=== PATIENT | female | born 1985 | race Caucasian/White ===

== ENCOUNTER 2016-02-27 14:27 | Emergency (ER) ==
[2016-02-27 14:32] VITALS: BP 126/89; TEMP 97.4; BMI 32.1
--- NOTE | 2016-02-27 14:37 | ED.PDOC ---
General ED Provider: Dr. PARRIS RODRIGUEZ-ER Chief Complaint: Sore Throat Stated Complaint: my throat hurtrs Time Seen by Physician: 14:34 Mode of Arrival: Walk-In Information Source: Patient Exam Limitations: No limitations Primary Care Provider: PARRIS RODRIGUEZ Nursing and Triage Documentation Reviewed and Agree: Yes EENT Complaint Exam - Throat Complaint/Exam Onset/Duration: 2 days Symptoms Are: Still present Timimg: Constant Initial Severity: Mild Current Severity: Mild Aggravating: Reports: Eating Alleviating: Reports: None Associated Signs and Symptoms: Denies: Fever, Dysphagia, Drooling, Foreign body sensation, Chills, Cough, Wheezing, Hoarseness, Sinus discomfort, Nasal congestion, Difficulty breathing, Lethargy, Irritability, Decreased activity, Vomiting, Diarrhea, Decreased hearing, Ear drainage Related History: Reports: Similar Episode Uvula Midline: Yes Oriana-tonsillar Fluctuence: No Scarlatinaform Rash Present: No Exanthem: Present: Pharynx Stridor Present: No Sinus Tenderness Present: No Tonsillar Hypertrophy Present: Yes Tonsillar Exudate Present: Yes Oriana-tonsillar Swelling Present: No Adenopathy Present: Yes Splenomegaly Present: No Differential Diagnoses: Tonsillitis Review of Systems - Review Of Systems Constitutional: Reports: No symptoms Eyes: Reports: No symptoms Ears, Nose, Mouth, Throat: Reports: Throat pain, Throat swelling Respiratory: Reports: No symptoms Cardiac: Reports: No symptoms GI: Reports: No symptoms : Reports: No symptoms Musculoskeletal: Reports: No symptoms Skin: Reports: No symptoms Neurological: Reports: No symptoms Endocrine: Reports: No symptoms Hematologic/Lymphatic: Reports: No symptoms All Other Systems: Reviewed and Negative Past Medical History - Past Medical History Previously Healthy: Yes Endocrine: Reports: None Cardiovascular: Reports: None Respiratory: Reports: None Hematological: Reports: None Gastrointestinal: Reports: None Genitourinary: Reports: None Neuro/Psych: Reports: None Musculoskeletal: Reports: None Cancer: Reports: None Last Menstrual Period: N/A - Surgical History General Surgical History: Reports: Tubal ligation, Other (ear tubes) - Family History Family History: Reports: Unknown - Social History Smoking Status: Former smoker Hx Substance Use: No Alcohol Screening: Occasionally Lives: With family - Immunizations Tetanus Shot up to Date: Yes Physical Exam - Physical Exam Appearance: Well-appearing, No pain distress, Well-nourished Eyes: SUDHA ENT: Erythema, Exudate Neck: Supple Respiratory: Airway patent, Breath sounds clear, Breath sounds equal, Respirations nonlabored Cardiovascular: RRR, Pulses normal, No rub, No murmur GI/: Soft, Nontender, No masses, Bowel sounds normal, No Organomegaly Musculoskeletal: Normal strength, ROM intact, No edema, No calf tenderness Skin: Warm, Dry, Normal color Neurological: Sensation intact, Motor intact, Reflexes intact, Cranial nerves intact, Alert, Oriented Psychiatric: Affect appropriate Critical Care Note - Critical Care Note Total Time (mins): 0 Course - Course Vital Signs: Temp Pulse Resp BP Pulse Ox 02/27/16 14:27 97.4 F L 104 H 20 126/89 98 Departure - Departure Time of Disposition: 14:35 Disposition: HOME SELF-CARE Discharge Problem: Tonsillitis Instructions: Tonsillitis (ED) Condition: Good Pt referred to PMD for follow-up: Yes Additional Instructions: augmentin 875mg bid x 7days--medrol dose pack--salt water gargles--recheck in 48hrs if not improving Allergies/Adverse Reactions: Allergies No Known Allergies Allergy (Verified 02/27/16 14:33) Home Medications: Ambulatory Orders Dicyclomine HCl [Bentyl] 10 mg PO 02/27/16 Disposition Discussed With: Patient
== END 2016-02-27 14:39 | disposition home or self-care (01) ==
LOC: ED 14:27
DX: J03.90 Acute tonsillitis, unspecified (principal)
CPT/HCPCS: 99282

== ENCOUNTER 2016-03-30 12:54 | Outpatient (CLI) ==
[2016-03-30 14:22] VITALS: BMI 30.9
== END 2016-03-30 12:55 | disposition home or self-care (01) ==
LOC: DIETCN 12:54
PROVIDERS: ATTEND Internal Medicine Gastroenterology
DX: K90.0 Celiac disease (principal)
CPT/HCPCS: 97802

== ENCOUNTER 2016-04-19 10:12 | Day surgery (SDC) ==
[2016-04-19 11:10] VITALS: TEMP 98.2
[2016-04-19 12:12] LABS: URINE PREGNANCY INTERNAL QC INTERNAL QC VALID
[2016-04-19] MEDS ORDERED: DECADRON 4 MG/ML SDV ONE (12:15)
[2016-04-19] MEDS ORDERED: ZEMURON ONE (12:15)
[2016-04-19] MEDS ORDERED: ZOFRAN 4 MG/2 ML ONE (12:15)
[2016-04-19] MEDS ORDERED: NEOSTIGMINE IVP ONE (12:15)
[2016-04-19] MEDS ORDERED: DIPRIVAN 20 ML VIAL IVP ONE (12:15)
[2016-04-19] MEDS ORDERED: VERSED ONE (12:15)
[2016-04-19] MEDS ORDERED: ROBINOL ONE (12:15)
[2016-04-19] MEDS ORDERED: SUFENTA IVP ONE (12:15)
[2016-04-19] MEDS ORDERED: LACTATED RINGERS 1,000 ML IV SCH (13:00)
[2016-04-19] MEDS ORDERED: ZOFRAN 4 MG/2 ML IVP ONE (13:34)
[2016-04-19 14:52] VITALS: BP 110/76
--- NOTE | 2016-04-20 14:14 | OP ---
PREOPERATIVE DIAGNOSIS: TONSILLITIS POSTOPERATIVE DIAGNOSIS: TONSILLITIS OPERATION: TONSILLECTOMY PROCEDURE: The patient was taken to surgery, placed on the table and general anesthesia was administered. A Kostas-Arnulof mouth gag was inserted. The right tonsil was grasped in the area of the superior pole and incision was made along the anterior tonsillar pillar. Dissection carried out inferiorly and tonsil was removed. [id number] suture of 0 chromic was placed at the base of the tongue. Another suture also placed in the middle part of the tongue. Identical procedure was performed of the left tonsil where again figure-of- eight suture of 0 chromic was placed in the middle of the tongue and at the base of the tongue. The patient's mouth and oropharynx were irrigated copiously with saline, extubated and the patient returned to the recovery room in satisfactory condition. JOANNE
--- NOTE | 2016-04-20 14:15 | DS ---
DISCHARGE DIAGNOSIS: TONSILLITIS SUMMARY: This is a 30-year-old patient who underwent a tonsillectomy on 04/19/16. The patient did well postoperatively and was instructed to return to the office in 3 weeks. Diet as tolerated. Activity as tolerated. The patient was released on Amoxicillin and Tylox with Codeine for pain. MTDD
== END 2016-04-19 15:55 | disposition home or self-care (01) ==
LOC: SURG 10:12
PROVIDERS: ATTEND Otolaryngology
DX: J35.01 Chronic tonsillitis (principal); D10.4 Benign neoplasm of tonsil
CPT/HCPCS: 81025

== ENCOUNTER 2016-08-11 22:16 | Emergency (ER) ==
[2016-08-11] MEDS ORDERED: ROCEPHIN IM STA (22:22)
[2016-08-11] MEDS ORDERED: LIDOCAINE 1 % AMP 5 ML (SUTURES) IM STA (22:22)
[2016-08-11] MEDS ORDERED: DECADRON 4 MG/ML SDV IM STA (22:22)
--- NOTE | 2016-08-11 22:25 | ED.PDOC ---
General ED Provider: Dr. PARRIS RODRIGUEZ-ER Chief Complaint: Bite Stated Complaint: dyan got this bite--its itchy Time Seen by Physician: 22:23 Mode of Arrival: Walk-In Information Source: Patient Exam Limitations: No limitations Primary Care Provider: PARRIS RODRIGUEZ Nursing and Triage Documentation Reviewed and Agree: Yes Skin Complaint Exam - Skin Rash/Itching Complaint/Exam Onset/Duration: 3 days Symptoms Are: Still present Initial Severity: Mild Current Severity: Mild Location: left upper arm Potential Exposures: Reports: Unknown Aggravating: Reports: None Alleviating: Reports: None Associated Signs and Symptoms: Denies: Difficulty breathing, Fever, Chills Skin Findings: Present: Urticaria, Target lesions Differential Diagnoses: Allergic Reaction, Other Review of Systems - Review Of Systems Constitutional: Reports: No symptoms Eyes: Reports: No symptoms Ears, Nose, Mouth, Throat: Reports: No symptoms Respiratory: Reports: No symptoms Cardiac: Reports: No symptoms GI: Reports: No symptoms : Reports: No symptoms Musculoskeletal: Reports: No symptoms Skin: Reports: Rash Neurological: Reports: No symptoms Endocrine: Reports: No symptoms Hematologic/Lymphatic: Reports: No symptoms All Other Systems: Reviewed and Negative Past Medical History - Past Medical History Previously Healthy: Yes Endocrine: Reports: None Cardiovascular: Reports: None Respiratory: Reports: None Hematological: Reports: None Gastrointestinal: Reports: None Genitourinary: Reports: None Neuro/Psych: Reports: None Musculoskeletal: Reports: None Cancer: Reports: None - Surgical History General Surgical History: Reports: Tubal ligation, Other (ear tubes) - Family History Family History: Reports: Unknown - Social History Smoking Status: Former smoker Hx Substance Use: No Alcohol Screening: Occasionally Lives: With family Physical Exam - Physical Exam Appearance: Well-appearing, No pain distress, Well-nourished Eyes: SUDHA, EOMI, Conjunctiva clear ENT: Ears normal, Nose normal, Oropharynx normal Neck: Supple Respiratory: Airway patent, Breath sounds clear, Breath sounds equal, Respirations nonlabored Cardiovascular: RRR, Pulses normal, No rub, No murmur GI/: Soft, Nontender, No masses, Bowel sounds normal, No Organomegaly Musculoskeletal: Normal strength, ROM intact, No edema, No calf tenderness Skin: Warm, Dry, Normal color Neurological: Sensation intact, Motor intact, Reflexes intact, Cranial nerves intact, Alert, Oriented Psychiatric: Affect appropriate, Mood appropriate Critical Care Note - Critical Care Note Total Time (mins): 0 Course - Course Orders, Labs, Meds: Orders Category Date Time Status Ceftriaxone Sodium [Rocephin] MEDS 08/11/16 22:22 Stat 1 gm IM ONCE STA Dexamethasone 4 mg/ml Inj [Decadron 4 mg/ml Sdv] MEDS 08/11/16 22:22 Stat 4 mg IM ONCE STA Lidocaine HCl/Pf [Lidocaine 1 % Amp 5 ml (Sutures)] MEDS 08/11/16 22:22 Stat 2.1 ml IM ONCE STA Medications Generic Name Dose Route Start Last Admin Trade Name Freq PRN Reason Stop Dose Admin Ceftriaxone Sodium 1 gm 08/11/16 22:22 Rocephin IM 08/11/16 22:23 ONCE STA Dexamethasone Sodium Phosphate 4 mg 08/11/16 22:22 Decadron 4 Mg/Ml Sdv IM 08/11/16 22:23 ONCE STA Lidocaine HCl 2.1 ml 08/11/16 22:22 Lidocaine 1 % Amp 5 Ml (Sutures) IM 08/11/16 22:23 ONCE STA Departure - Departure Time of Disposition: 22:25 Disposition: HOME SELF-CARE Discharge Problem: Insect bite Qualifiers: Encounter type: initial encounter Qualifier Code: (W57.XXXA) Bitten or stung by nonvenomous insect and other nonvenomous arthropods, initial encounter Instructions: Insect Bite or Sting (ED) Condition: Good Pt referred to PMD for follow-up: Yes Additional Instructions: use benadryl q 4hrs for itching --seee me next week if not resolving Allergies/Adverse Reactions: Allergies No Known Allergies Allergy (Verified 02/27/16 14:33) Home Medications: Ambulatory Orders Dicyclomine HCl [Bentyl] 10 mg PO DAILY 02/27/16 Cyclobenzaprine HCl 10 mg PO PRN 03/22/16 Ondansetron HCl [Zofran] 4 mg PO PRN 03/22/16 Disposition Discussed With: Patient
[2016-08-11 22:34] VITALS: BP 118/79; TEMP 97.9; BMI 31.1
== END 2016-08-11 23:05 | disposition home or self-care (01) ==
LOC: ED 22:16
DX: S40.862A Insect bite (nonvenomous) of left upper arm, initial encounter (principal); L29.9 Pruritus, unspecified; W57.XXXA Bitten or stung by nonvenomous insect and other nonvenomous arthropods, initial encounter
CPT/HCPCS: 96372; 99283

== ENCOUNTER 2016-09-10 19:21 | Emergency (ER) ==
[2016-09-10 19:32] VITALS: BP 120/75; TEMP 98.7; BMI 30.4
[2016-09-10] MEDS ORDERED: TORADOL IM STA (19:38)
--- NOTE | 2016-09-10 19:41 | ED.PDOC ---
General ED Provider: Dr. TORO BASURTO Chief Complaint: Wrist Pain/Injury Stated Complaint: Woke up yesterday with pain in the rt wrist, ni injury. she worked all day the pain got worse Time Seen by Physician: 19:39 Mode of Arrival: Walk-In Information Source: Patient Primary Care Provider: PARRIS RODRIGUEZ Nursing and Triage Documentation Reviewed and Agree: Yes Musculoskeletal Complaint Exam - Hand/Wrist Complaint/Exam Location of Pain: Reports: Right, Wrist Mechanism of Injury: Reports: No known trauma Symptoms Are: Still present Onset of Pain: Reports: Days Initial Severity: Moderate Current Severity: Mild Location: Reports: Discrete Character: Reports: Aching, Throbbing Alleviating: Reports: Rest Aggravating: Reports: Movement Associated Signs and Symptoms: Denies: Swelling, Redness, Bruising, Fever, Weakness, Numbness, Tingling Dominant Hand: Right Related Surgical History: Reports: None Hand/Wrist Findings: Absent: Swelling, Ecchymosis, Abnormal contour, Rotation Tenderness: Present: Radius, Snuff box Differential Diagnoses: Dislocation, Closed Fracture, Sprain Review of Systems - Review Of Systems Constitutional: Reports: No symptoms Eyes: Reports: No symptoms Ears, Nose, Mouth, Throat: Reports: No symptoms Respiratory: Reports: No symptoms Cardiac: Reports: No symptoms GI: Reports: No symptoms : Reports: No symptoms Musculoskeletal: Reports: Joint pain Skin: Reports: No symptoms Neurological: Reports: No symptoms Endocrine: Reports: No symptoms Hematologic/Lymphatic: Reports: No symptoms All Other Systems: Reviewed and Negative Past Medical History - Past Medical History Previously Healthy: Yes Endocrine: Reports: None Cardiovascular: Reports: None Respiratory: Reports: None Hematological: Reports: None Gastrointestinal: Reports: None Genitourinary: Reports: None Neuro/Psych: Reports: None Musculoskeletal: Reports: None Cancer: Reports: None Last Menstrual Period: AUGUST 03, 2016 PERIODS ARE IRREGULAR - Surgical History General Surgical History: Reports: Tubal ligation, Other (ear tubes) - Family History Family History: Reports: Unknown - Social History Smoking Status: Former smoker Hx Substance Use: No Alcohol Screening: Occasionally - Immunizations Tetanus Shot up to Date: Yes Physical Exam - Physical Exam Appearance: Well-appearing, No pain distress, Well-nourished Eyes: SUDHA, EOMI, Conjunctiva clear ENT: Ears normal, Nose normal, Oropharynx normal Respiratory: Airway patent, Breath sounds clear, Breath sounds equal, Respirations nonlabored Cardiovascular: RRR, Pulses normal, No rub, No murmur GI/: Soft, Nontender, No masses, Bowel sounds normal, No Organomegaly Musculoskeletal: Limited ROM, Limited strength Skin: Warm, Dry, Normal color Neurological: Sensation intact, Motor intact, Reflexes intact, Cranial nerves intact, Alert, Oriented Psychiatric: Affect appropriate, Mood appropriate Interpretation - Radiology Interpretation Radiology Interpretation By: ED Physician Radiology Results: Negative Critical Care Note - Critical Care Note Total Time (mins): 0 Course - Course Orders, Labs, Meds: Orders Category Date Time Status Ketorolac Tromethamine [Toradol] MEDS 09/10/16 19:38 Discontinued 60 mg IM ONCE STA WRIST, RIGHT 3 VIEWS Stat RADS 09/10/16 19:38 Completed Medications Discontinued Medications Generic Name Dose Route Start Last Admin Trade Name Freq PRN Reason Stop Dose Admin Ketorolac Tromethamine 60 mg 09/10/16 19:38 09/10/16 19:47 Toradol IM 09/10/16 19:39 60 mg ONCE STA Administration Vital Signs: Temp Pulse Resp BP Pulse Ox 09/10/16 19:22 98.7 F 71 16 120/75 98 Departure - Departure Time of Disposition: 20:12 Disposition: HOME SELF-CARE Discharge Problem: Tendinitis of right wrist Instructions: Tendinitis (ED) Condition: Stable Pt referred to PMD for follow-up: Yes Additional Instructions: Rest Prescriptions: Prednisone 10 mg PO BIDWM #14 tablet Allergies/Adverse Reactions: Allergies No Known Allergies Allergy (Verified 09/10/16 19:32) Home Medications: Ambulatory Orders Dicyclomine HCl [Bentyl] 10 mg PO TID PRN 02/27/16 Cyclobenzaprine HCl 10 mg PO DAILY PRN 03/22/16 Ondansetron HCl [Zofran] 4 mg PO DAILY PRN 03/22/16 Prednisone 10 mg PO BIDWM #14 tablet 09/10/16 Disposition Discussed With: Patient
--- NOTE | 2016-09-10 20:08 | DI ---
EXAM: Right wrist three views HISTORY: Pain COMPARISON: Right wrist exam 10/13/2013 FINDINGS: There is no acute fracture or dislocation or bony abnormality. The surrounding soft tiss ues are unremarkable. IMPRESSION: No acute findings
== END 2016-09-10 19:55 | disposition home or self-care (01) ==
LOC: ED 19:21
DX: M77.9 Enthesopathy, unspecified (principal)
CPT/HCPCS: 96372; 99283

== ENCOUNTER 2017-03-06 11:10 | Outpatient (CLI) ==
--- NOTE | 2017-03-06 11:41 | DI ---
EXAM: Three views of the right fingers. History: Right middle finger pain. Findings: No acute fracture or dislocation. No abnormal calcifications or radiopaque foreign bodies . Joint spaces are preserved. Impression: No acute osseous abnormality
== END 2017-03-06 11:11 | disposition home or self-care (01) ==
LOC: RAD 11:10
PROVIDERS: ATTEND Family Medicine
DX: M79.644 Pain in right finger(s) (principal)

== ENCOUNTER 2017-03-14 19:50 | Emergency (ER) ==
[2017-03-14 20:14] VITALS: BP 133/84; TEMP 97.8
[2017-03-14 20:17] VITALS: BMI 27.0
--- NOTE | 2017-03-14 20:26 | ED.PDOC ---
General ED Provider: Dr. PARRIS RODRIGUEZ-ER Chief Complaint: Urinary Problem Stated Complaint: i burn when i pee Time Seen by Physician: 20:15 Mode of Arrival: Walk-In Information Source: Patient Exam Limitations: No limitations Primary Care Provider: PARRIS RODRIGUEZ Nursing and Triage Documentation Reviewed and Agree: Yes Reviewed sepsis parameters & appropriate labs ordered?: Yes System Inflammatory Response Syndrome: Not Applicable Sepsis Protocol: For patient's 13 years and over: Temp is 96.8 and below OR 101 and greater Pulse >90 BPM Resp >20/minute Acutely Altered Mental Status Are patient's symptoms suggestive of a new infection, such as: -Pneumonia -Skin, Soft Tissue -Endocarditis -UTI -Bone, Joint Infection -Implantable Device -Acute Abdominal Infection -Wound Infection -Meningitis -Blood Stream Catheter Infection -Unknown Complaint Exam - UTI Female Complaint/Exam Patient Complains of: Reports: Painful urination Onset/Duration: 24 hrs Symptoms Are: Still present Timing: Constant Initial Severity: Mild Current Severity: Mild Location of Pain: Reports: Suprapubic Associated Signs and Symptoms: Denies: Fever, Chills, Flank pain, Dyspareunia, Vaginal discharge Patient Rh Status: Unknown CVA Tenderness: No Suprapubic Tenderness: No Differential Diagnoses: Cystitis Review of Systems - Review Of Systems Constitutional: Reports: No symptoms Eyes: Reports: No symptoms Ears, Nose, Mouth, Throat: Reports: No symptoms Respiratory: Reports: No symptoms Cardiac: Reports: No symptoms GI: Reports: No symptoms : Reports: Burning, Dysuria Musculoskeletal: Reports: No symptoms Skin: Reports: No symptoms Neurological: Reports: No symptoms Endocrine: Reports: No symptoms Hematologic/Lymphatic: Reports: No symptoms All Other Systems: Reviewed and Negative Past Medical History - Past Medical History Previously Healthy: Yes Endocrine: Reports: None Cardiovascular: Reports: None Respiratory: Reports: None Hematological: Reports: None Gastrointestinal: Reports: None Genitourinary: Reports: None Neuro/Psych: Reports: None Musculoskeletal: Reports: None Cancer: Reports: None Last Menstrual Period: 03/05/16 - Surgical History General Surgical History: Reports: Tubal ligation, Other (ear tubes) - Family History Family History: Reports: Unknown - Social History Smoking Status: Never smoker Hx Substance Use: No Alcohol Screening: None Lives: With family - Immunizations Tetanus Shot up to Date: Yes Physical Exam - Physical Exam Appearance: Well-appearing, No pain distress, Well-nourished Eyes: SUDHA ENT: Ears normal Neck: Supple Respiratory: Airway patent, Breath sounds clear, Breath sounds equal, Respirations nonlabored Cardiovascular: RRR, Pulses normal, No rub, No murmur GI/: Soft Musculoskeletal: Normal strength Skin: Warm, Dry, Normal color Neurological: Sensation intact Psychiatric: Affect appropriate, Mood appropriate Critical Care Note - Critical Care Note Total Time (mins): 0 Course - Course Orders, Labs, Meds: Lab Review 03/14/17 03/14/17 19:55 19:55 Urine Color Zarina Urine Clarity Cloudy Urine pH 6.5 Ur Specific [place] >=1.030 Urine Protein 3+ Urine Glucose (UA) Negative Urine Ketones Negative Urine Blood 3+ Urine Nitrite Negative Urine Bilirubin Negative Urine Urobilinogen 0.2 Ur Leukocyte Esterase 1+ Urine Microscopic RBC 30-50 Urine Microscopic WBC 20-30 Ur Squamous Epith Cells 2-5 Urine Bacteria 1+ Urine Test Negative Orders Category Date Time Status URINALYSIS C & S IF INDICATED Stat LAB 03/14/17 19:55 Completed URINE CULTURE Stat LAB 03/14/17 19:55 Received URINE Stat LAB 03/14/17 19:55 Completed Vital Signs: Temp Pulse Resp BP Pulse Ox 03/14/17 20:11 97.8 F 80 18 133/84 98 Departure - Departure Time of Disposition: 20:25 Disposition: HOME SELF-CARE Discharge Problem: Urinary tract infectious disease Instructions: Urinary Tract Infection in Women (ED) Condition: Good Pt referred to PMD for follow-up: Yes IPMP verified?: No Additional Instructions: cipro 500mg bid x 7 days--pyridium 200mg tid with food x 2 days #6--fluids-- recheck in 72hrs if not better Allergies/Adverse Reactions: Allergies No Known Allergies Allergy (Verified 09/10/16 19:32) Home Medications: Ambulatory Orders Dicyclomine HCl [Bentyl] 10 mg PO TID PRN 02/27/16 Cyclobenzaprine HCl 10 mg PO DAILY PRN 03/22/16 Ondansetron HCl [Zofran] 4 mg PO DAILY PRN 03/22/16 Disposition Discussed With: Patient
== END 2017-03-14 20:30 | disposition home or self-care (01) ==
LOC: ED 19:50
DX: N39.0 Urinary tract infection, site not specified (principal)
CPT/HCPCS: 81001; 81025; 87086; 87186; 99283

== ENCOUNTER 2017-03-26 11:27 | Outpatient (CLI) ==
--- NOTE | 2017-03-26 12:41 | US ---
EXAM: Pelvic ultrasound HISTORY: Left lower quadrant pain COMPARISON: None TECHNIQUE: Transvaginal pelvic ultrasound for FINDINGS: Uterus measures 3.9 x 4.3 x 7.4 cm. Myometrial echogenicity is normal. Endometrium appea rs normal measures 0.3 cm. Right ovary measures 2.2 x 2.3 x 2.9 cm. Left ovary measures 2.2 x 2.2 x 3.8 cm. Ovaries normal in echogenicity. Numerous bilateral sub centimeter physiologic cysts or fol licles, with relative peripheral distribution. Normal arterial Doppler flow in right and left ovary. No free fluid identified in the cul-de-sac. IMPRESSION: 1. Normal appearance of the uterus. 2. Appearance of the ovaries that can be associated with polycystic ovarian syndrome. Otherwise unr emarkable appearance of the ovaries.
== END 2017-03-26 11:28 | disposition home or self-care (01) ==
LOC: RAD 11:27
PROVIDERS: ATTEND Nurse Practitioner Women's Health
DX: R10.32 Left lower quadrant pain (principal)

== ENCOUNTER 2017-07-25 14:11 | Outpatient (CLI) | END 2017-07-25 14:12 | disposition home or self-care (01) | LOC: RHC-LAB 14:11 | PROVIDERS: ATTEND Nurse Practitioner Family | DX: K14.6 Glossodynia (principal) | CPT/HCPCS: 87651 ==

== ENCOUNTER 2018-05-13 07:48 | Outpatient (CLI) ==
--- NOTE | 2018-05-13 10:23 | CT ---
EXAM: CT of the abdomen pelvis with and without contrast History: Abdominal pain and cramping, celiac disease. Comparison: Abdominal ultrasound 02/15/2018, CT abdomen pelvis 10/03/2014 Technique: Multiplanar CT images through the abdomen pelvis were obtained with and without the admin istration of IV contrast Findings: Lung bases are clear. No acute osseous abnormalities. No renal stones and no hydronephrosis. No ureteral calculi. No gallstones identified by CT. No benji er or splenic lesions. Pancreas is unremarkable. Adrenal glands are normal. No renal masses. No b owel obstruction. No bowel wall thickening. The appendix is not seen. There are no secondary signs of appendicitis. No free air and no ascites. No bladder wall thickening. Adnexal structures appea r appropriate for patient's age. No perirectal inflammation. No pathologically enlarged lymph nodes . Impression: No acute intra-abdominal or pelvic process.
== END 2018-05-13 07:49 | disposition home or self-care (01) ==
LOC: RAD 07:48
PROVIDERS: ATTEND Internal Medicine Gastroenterology
DX: R10.84 Generalized abdominal pain (principal)
CPT/HCPCS: 36415; 82565

== ENCOUNTER 2018-05-15 08:56 | Outpatient (CLI) ==
--- NOTE | 2018-05-15 14:07 | NM ---
EXAM: Gastric emptying study HISTORY: Abdominal pain for several months, both when she eats and when she does not eat. COMPARISON: None of this type. PROCEDURE: The patient was administered 2 mCi of 99m technetium sulfur colloid mixed with eggs toast and water as a solid phase meal. Imaging of the stomach was performed at one hour intervals for 4 ho urs in anterior and posterior projections simultaneously. Subsequently time activity curves were nicola culated using anterior, posterior and geometric mean data. The gastric emptying half-time was determ ined. FINDINGS:The examination demonstrates a normal appearance of activity within the stomach. Sequential images demonstrate transit of activity from the stomach into the small bowel. The examination demon strates 12% emptying at 30 minutes, 33% emptying at 1 hour, 62% emptying at 2 hours, 82% emptying at 3 hours and 94% emptying at 4 hours. The gastric emptying half-time is between 1 and 2 hours. IMPRESSION: 1.The gastric emptying half-time is between and 2 hours. 2.Images of the activity in the stomach and small bowel are within normal limits.
== END 2018-05-15 08:57 | disposition home or self-care (01) ==
LOC: RAD 08:56
PROVIDERS: ATTEND Internal Medicine Gastroenterology
DX: R10.84 Generalized abdominal pain (principal)

== ENCOUNTER 2018-06-13 08:11 | Outpatient (CLI) | END 2018-06-13 08:12 | disposition home or self-care (01) | LOC: LAB 08:11 | PROVIDERS: ATTEND Family Medicine | DX: R30.0 Dysuria (principal) | CPT/HCPCS: 81001; 87086; 87186 ==

== ENCOUNTER 2018-07-05 11:09 | Outpatient (CLI) ==
[2018-07-05 11:40] LABS: URINE PREGNANCY TEST NEGATIVE (NEGATIVE)
== END 2018-07-05 11:10 | disposition home or self-care (01) ==
LOC: LAB 11:09
PROVIDERS: ATTEND Family Medicine
DX: N91.2 Amenorrhea, unspecified (principal)
CPT/HCPCS: 81025

== ENCOUNTER 2018-07-07 22:32 | Emergency (ER) ==
[2018-07-07 22:41] VITALS: BP 125/77; TEMP 98.8; BMI 38.4
[2018-07-07] MEDS ORDERED: PYRIDIUM PO STA (22:48)
--- NOTE | 2018-07-07 22:48 | ED.PDOC ---
General ED Provider: Dr. AGNES SALES Chief Complaint: Urinary Problem Stated Complaint: Patient states that she had a urine analysis at Dr. Rodriguez's office on 4 days ago that was negative however she was started on CIpro 500mg BID x 7 days. Stats she continue to burn while urinating. Time Seen by Physician: 22:46 Mode of Arrival: Walk-In Information Source: Patient Primary Care Provider: PARRIS RODRIGUEZ Nursing and Triage Documentation Reviewed and Agree: Yes Does patient meet sepsis criteria?: No System Inflammatory Response Syndrome: Not Applicable Sepsis Protocol: For patient's 13 years and over: Temp is 96.8 and below OR 101 and greater Pulse >90 BPM Resp >20/minute Acutely Altered Mental Status Are patient's symptoms suggestive of a new infection, such as: -Pneumonia -Skin, Soft Tissue -Endocarditis -UTI -Bone, Joint Infection -Implantable Device -Acute Abdominal Infection -Wound Infection -Meningitis -Blood Stream Catheter Infection -Unknown Complaint Exam - UTI Female Complaint/Exam Patient Complains of: Reports: Painful urination, Blood in urine Onset/Duration: 3 days Symptoms Are: Still present Timing: Constant Initial Severity: Moderate Current Severity: Severe Location of Pain: Reports: Suprapubic Associated Signs and Symptoms: Denies: Fever, Chills, Flank pain, Dyspareunia, Vaginal discharge Patient Rh Status: Unknown Related History: Reports: Similar episode CVA Tenderness: No Suprapubic Tenderness: Yes Differential Diagnoses: Other (UTI ) Review of Systems - Review Of Systems Constitutional: Reports: No symptoms Eyes: Reports: No symptoms Ears, Nose, Mouth, Throat: Reports: No symptoms Respiratory: Reports: No symptoms Cardiac: Reports: No symptoms GI: Reports: No symptoms : Reports: Burning, Dysuria, Hematuria, Pain, Urgency Musculoskeletal: Denies: Back pain Skin: Reports: No symptoms Neurological: Reports: Anxiety Endocrine: Reports: No symptoms Hematologic/Lymphatic: Reports: No symptoms All Other Systems: Reviewed and Negative Past Medical History - Past Medical History Previously Healthy: Yes Endocrine: Reports: None Cardiovascular: Reports: None Respiratory: Reports: None Hematological: Reports: None Gastrointestinal: Reports: None Genitourinary: Reports: UTI Neuro/Psych: Reports: None Musculoskeletal: Reports: None Cancer: Reports: None Last Menstrual Period: 05/30/18 - is irregular - Surgical History General Surgical History: Reports: Tubal ligation, Other (ear tubes) - Family History Family History: Reports: Unknown - Social History Smoking Status: Never smoker Hx Substance Use: No Alcohol Screening: None - Immunizations Tetanus Shot up to Date: Yes Physical Exam - Physical Exam Appearance: Obese Ill-appearing: Mild Eyes: SUDHA, EOMI, Conjunctiva clear ENT: Ears normal, Nose normal, Oropharynx normal Respiratory: Airway patent, Breath sounds clear, Breath sounds equal, Respirations nonlabored Cardiovascular: RRR, Pulses normal, No rub, No murmur GI/: Soft, Nontender, No masses, Bowel sounds normal, No Organomegaly Musculoskeletal: Normal strength, ROM intact, No edema, No calf tenderness Skin: Warm, Dry, Normal color Neurological: Sensation intact, Motor intact, Cranial nerves intact, Alert, Oriented Psychiatric: Anxious Critical Care Note - Critical Care Note Total Time (mins): 0 Course - Course Orders, Labs, Meds: Lab Review 07/07/18 07/07/18 22:45 22:45 Urine Color Yellow Urine Clarity Turbid Urine pH 7.0 Ur Specific [place] >=1.030 Urine Protein 3+ Urine Glucose (UA) Negative Urine Ketones Negative Urine Blood 3+ Urine Nitrite Negative Urine Bilirubin Negative Urine Urobilinogen 0.2 Ur Leukocyte Esterase 3+ Urine Microscopic RBC 50-100 Urine Microscopic WBC 30-50 Ur Squamous Epith Cells 0-2 Urine Bacteria Trace Urine Test Negative Orders Category Date Time Status URINALYSIS C & S IF INDICATED Stat LAB 07/07/18 22:45 Completed URINE CULTURE Stat LAB 07/07/18 23:13 Received URINE Stat LAB 07/07/18 22:45 Completed Phenazopyridine HCl [Pyridium] MEDS 07/07/18 22:48 Discontinued 100 mg PO ONCE STA Sulfamethoxazole/Trimethoprim [Bactrim Ds 800/160 mg] MEDS 07/07/18 23:21 Discontinued 1 tab PO ONCE STA Medications Discontinued Medications Generic Name Dose Route Start Last Admin Trade Name Freq PRN Reason Stop Dose Admin Phenazopyridine HCl 100 mg 07/07/18 22:48 07/07/18 22:57 Pyridium PO 07/07/18 22:49 100 mg ONCE STA Administration Trimethoprim/Sulfamethoxazole 1 tab 07/07/18 23:21 07/07/18 23:29 Bactrim Ds 800/160 Mg PO 07/07/18 23:22 1 tab ONCE STA Administration Vital Signs: Temp Pulse Resp BP Pulse Ox 07/07/18 22:33 98.8 F 79 20 125/77 99 Departure - Departure Time of Disposition: 23:13 Disposition: HOME SELF-CARE Discharge Problem: Urinary tract infectious disease Instructions: Urinary Tract Infection in Women (ED) Condition: Fair Pt referred to PMD for follow-up: Yes IPMP verified?: No Additional Instructions: Take Medications as prescribed follow up with PCP in 3 days Prescriptions: Sulfamethoxazole/Trimethoprim [Bactrim Ds 800/160 mg] 1 tab PO Q12HR #20 tablet Phenazopyridine HCl [Pyridium] 100 mg PO TID PRN #10 tablet PRN Reason: Urinary Burning. Allergies/Adverse Reactions: Allergies No Known Allergies Allergy (Verified 07/07/18 22:41) Home Medications: Ambulatory Orders Dicyclomine HCl [Bentyl] 10 mg PO TID PRN 02/27/16 Cyclobenzaprine HCl 10 mg PO DAILY PRN 03/22/16 Ciprofloxacin HCl [Cipro] 500 mg PO BID 07/07/18 Omeprazole [Prilosec] 20 mg PO QDAC 07/07/18 Ondansetron HCl [Zofran] 4 mg PO Q4H PRN 07/07/18 Phenazopyridine HCl [Pyridium] 100 mg PO TID PRN #10 tablet 07/07/18 Sulfamethoxazole/Trimethoprim [Bactrim Ds 800/160 mg] 1 tab PO Q12HR #20 tablet 07/07/18 Disposition Discussed With: Patient
[2018-07-07 23:02] LABS: URINE PREGNANCY TEST NEGATIVE (NEGATIVE)
[2018-07-07] MEDS ORDERED: BACTRIM DS 800/160 MG PO STA (23:21)
== END 2018-07-07 23:34 | disposition home or self-care (01) ==
LOC: ED 22:32
DX: N39.0 Urinary tract infection, site not specified (principal); Z87.440 Personal history of urinary (tract) infections
CPT/HCPCS: 81001; 81025; 87086; 99283